=== PATIENT | female | born 1975 | race Caucasian/White ===

== ENCOUNTER → 2024-12-26 13:29 | Outpatient (REF) | payer OTHER, SELFPAY | LOC: RAD 13:29 | PROVIDERS: ATTENDING PHYSICIAN Urology; FAMILY PHYSICIAN Family Medicine | DX: R31.0 Gross hematuria (principal) | CPT/HCPCS: 74178; Q9967 ==

== ENCOUNTER 2025-09-28 20:48 | Emergency (ER) | payer OTHER, SELFPAY ==
[2025-09-28 20:53] VITALS: BP 148/90
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
== END 2025-09-28 22:49 | disposition home or self-care (01) ==
LOC: EMR 20:48
PROVIDERS: EMERGENCY PHYSICIAN Emergency Medicine
DX: M54.2 Cervicalgia (principal); G35.D Multiple sclerosis, unspecified
CPT/HCPCS: 99282